=== PATIENT | female | born 1995 | race Caucasian/White ===

== ENCOUNTER 2017-03-18 14:57 | Emergency (ER) | payer MEDICAID ==
[~2017-03-18] VITALS: Ht 175.3 cm; Wt 88.5 kg
[2017-03-18 16:00] LABS: RAPID INFLUENZA A Negative (Negative); RAPID INFLUENZA B POSITIVE (Negative)
[2017-03-18 16:02] VITALS: BP 114/66
== END 2017-03-18 16:18 | disposition home or self-care (01) ==
LOC: ED 16:15
DX: O26.892 Other specified pregnancy related conditions, second trimester (principal); J11.1 Influenza due to unidentified influenza virus with other respiratory manifestations; O99.512 Diseases of the respiratory system complicating pregnancy, second trimester; Z3A.20 20 weeks gestation of pregnancy
CPT/HCPCS: 87400; 99284

== ENCOUNTER 2020-08-02 01:56 | Emergency (ER) | payer MEDICAID ==
[~2020-08-02] VITALS: Ht 172.7 cm; Wt 80.0 kg
[~2020-08-02 01:56] MED LIST: PREN-3 PO
--- NOTE | 2020-08-02 02:10 | NUR ---
pt came into the ed this morning due to left sided abdominal and flank pain that began yesterday and got significantly worse. pt reports a headache as well w/o light or noise sensitivity. gross neuro intact. denies N/V/D. pt ambulated to and from restroom with a smooth and steady gait to obtian . Patient is resting comfortably in bed. Bed in lowest, rails engaged, call light on lap. Vital Signs within normal limits. WCTM.
[2020-08-02] MEDS ORDERED: KETOROLAC 30 MG/1 ML IVPush ONE (02:30)
--- NOTE | 2020-08-02 02:32 | NUR ---
TASK RN: PIV STARTED, LABS DRAWN AND SENT. PT TO US.
[2020-08-02 02:33] LABS: MICROSCOPIC AUTO
[2020-08-02 02:39] LABS: BASOPHILS % (AUTO) 0 % (0-1); EOSINOPHILS % (AUTO) 3 % (1-7); LYMPHOCYTES % (AUTO) 36 % (22-44); MD NO; MEAN CORPUSCULAR HEMOGLOBIN 24.6 pg (27.0-34.8); MEAN CORPUSCULAR HGB CONC 31.6 g/dL (32.4-35.8); MEAN PLATELET VOLUME 8.5 fL (7.4-10.4); MONOCYTES % (AUTO) 10 % (2-9); NEUTROPHILS % (AUTO) 51 % (42-75); PLATELET COUNT 301 x10^3/uL (130-400); RED BLOOD COUNT 3.59 x10^6/uL (3.82-5.3); RED CELL DISTRIBUTION WIDTH 17.2 % (9.6-15.2)
--- NOTE | 2020-08-02 02:41 | NUR ---
Note adilson in EDM - 08/02/20 at 0242 by HUBERT TASK RN: PT REPORTS NO RELIEF W/ PAIN MEDS. ERP UPDATED. PT MEDICATED PER ADAM BOOKER. AWAITING CT.
[2020-08-02] MEDS ORDERED: KETOROLAC 30 MG/1 ML ONE (02:45)
[2020-08-02 02:49] LABS: ALANINE AMINOTRANSFERASE 16 U/L (12-78); ALBUMIN 3.9 g/dL (3.4-5.0); ANION GAP 9 mmol/L (5-15); CALCIUM 8.4 mg/dL (8.5-10.1); CHLORIDE 109 mmol/L (98-107); CREATININE 0.72 mg/dL (0.55-1.02)
[2020-08-02 02:54] LABS: ALKALINE PHOSPHATASE 58 U/L (45-117); BILIRUBIN,TOTAL 0.2 mg/dL (0.2-1.0); TOTAL PROTEIN 6.8 g/dL (6.4-8.2)
--- NOTE | 2020-08-02 03:34 | NUR ---
Patient is resting comfortably in bed. Bed in lowest, rails engaged, call light on lap. WAITING FOR US READ. NAD, DENIES ADDITIONAL NEEDS. EYES CLOSED, EVEN AND UNLABORED RESPIRATIONS. Vital Signs within normal limits. WCTM.
[2020-08-02] MEDS ORDERED: ONDANSETRON 2MG/ML, 2ML ONE (04:14)
--- NOTE | 2020-08-02 04:16 | NUR ---
pt nad, medicated per mar at this time. resting on gurney, to be dc'd, vss, no other change in condition, wctm.
[2020-08-02 04:17] VITALS: BP 108/60
[2020-08-02] MEDS ORDERED: MORPHINE SULFATE 4 MG/ML, 1ML IVPush ONE (04:30)
[2020-08-02] MEDS ORDERED: ONDANSETRON 2MG/ML, 2ML IVPush ONE (04:30)
--- NOTE | 2020-08-02 04:37 | NUR ---
Patient/Caregiver given discharge instructions and they have confirmed that they understand the instructions. Patient ambulatory with steady gait. NAD, all questions answered appropriately, denies additional needs at this time. No personal belongings left in room after discharge.
== END 2020-08-02 04:46 | disposition home or self-care (01) ==
LOC: ED 04:36
DX: N30.00 Acute cystitis without hematuria (principal); N83.02 Follicular cyst of left ovary; R10.32 Left lower quadrant pain; D50.8 Other iron deficiency anemias; R51.9 Headache, unspecified; F17.200 Nicotine dependence, unspecified, uncomplicated
CPT/HCPCS: 36415; 76830; 80053; 81001; 83690; 84703; 85025; 87077; 87086; 96374; 96375; 99284; J1885; J2405; 87186